=== PATIENT | male | born 1995 | race Caucasian/White ===

== ENCOUNTER 2019-01-19 09:44 | Emergency (ER) | payer SELFPAY, OTHER ==
[2019-01-19] MEDS: LIDOCAINE 4% CR TOP (11:02)
[2019-01-19] MEDS: LIDOCAINE 1% (MDV) 20 ML INJ SC (11:02)
[2019-01-19] MEDS: HYDROCODONE/APAP (5/325) TAB PO (11:02)
== END 2019-01-19 12:45 | disposition home or self-care (01) ==
LOC: FTE 09:44
DX: L02.413 Cutaneous abscess of right upper limb (principal)
CPT/HCPCS: 10060; 99283-25